=== PATIENT | female | born 1955 | race Caucasian/White ===

== ENCOUNTER → 2020-07-16 11:15 | Outpatient (CLI) | payer OTHER, SELFPAY ==
[2020-07-16] MEDS: COVID-19 VACC #1, MRNA(MOD) 100 MCG/0.5 ML VIAL IM (11:23)
== END ==
PROVIDERS: Visit Provider Internal Medicine
DX: Z23 Encounter for immunization (principal)
CPT/HCPCS: 0011A; 91301

== ENCOUNTER → 2020-08-13 11:04 | Outpatient (CLI) | payer OTHER, SELFPAY ==
[2020-08-13] MEDS: COVID-19 VACC #2, MRNA(MOD) 100 MCG/0.5 ML VIAL IM (11:10)
== END ==
PROVIDERS: Visit Provider Internal Medicine
DX: Z23 Encounter for immunization (principal)
CPT/HCPCS: 0012A; 91301

== ENCOUNTER → 2021-01-26 | Outpatient (CLI) | payer OTHER, SELFPAY | PROVIDERS: Referring Provider Internal Medicine; Visit Provider Internal Medicine | DX: Z23 Encounter for immunization (principal) | CPT/HCPCS: 90471; 90686 ==

== ENCOUNTER → 2021-02-18 10:00 | Outpatient (CLI) | payer OTHER, SELFPAY ==
[2021-02-18] MEDS: COVID-19 VACC #3, MRNA(MOD) 50 MCG/0.25 ML VIAL IM (10:05)
== END ==
PROVIDERS: Visit Provider Internal Medicine
DX: Z23 Encounter for immunization (principal)
CPT/HCPCS: 0013A; 91301

== ENCOUNTER → 2021-04-18 14:42 | Outpatient (CLI) | payer OTHER, SELFPAY ==
--- NOTE | 2021-04-18 14:44 | DI.RAD.S_ITS ---
PROCEDURE: XR ANKLE LT MIN 3V INDICATIONS: s/p fall 8 days ago with twisted ankle TECHNIQUE: 3 views of the ankle were acquired. COMPARISON: None. FINDINGS: Bones: Minimal displaced fracture of the distal fibula, best appreciated on the lateral view. The remaining visualized osseous structures appear maintained. Ankle mortise is normally aligned. Soft tissues: Small tibiotalar joint effusion. Lateral soft tissue swelling. IMPRESSION: Minimal displaced fracture of the distal fibula. Dictated by: Fito Boles M.D. on 04/18/2021 at 15:11 Approved by: Fito Boles M.D. on 04/18/2021 at 15:13
== END ==
PROVIDERS: PCP Nurse Practitioner; Referring Provider Nurse Practitioner; Visit Provider Nurse Practitioner
DX: S82.62XA Displaced fracture of lateral malleolus of left fibula, initial encounter for closed fracture (principal); M25.572 Pain in left ankle and joints of left foot; W19.XXXA Unspecified fall, initial encounter
CPT/HCPCS: 73610